=== PATIENT | male | born 1975 | race Caucasian/White ===

== ENCOUNTER 2024-02-25 22:33 | Emergency (ER) | payer SELFPAY ==
[~2024-02-25] VITALS: Ht 172.7 cm; Wt 70.0 kg
[2024-02-25 22:54] VITALS: TEMP 98.4; O2SAT 99
[2024-02-26] MEDS: CLONIDINE 0.1MG TABLET PO ONE (02:24)
[2024-02-26] MEDS: ACETAMINOPHEN 325MG TABLET PO ONE (02:25)
[2024-02-26 04:16] VITALS: BP 139/89; PULSE 89; RESP 16
== END 2024-02-26 04:17 | disposition home or self-care (01) ==
LOC: ER 22:33
DX: I10 Essential (primary) hypertension (principal); R51.9 Headache, unspecified
CPT/HCPCS: 99283

== ENCOUNTER 2024-07-26 12:34 | Emergency (ER) | payer MEDICAID ==
[~2024-07-26] VITALS: Ht 167.6 cm; Wt 68.0 kg
[2024-07-26 12:41] VITALS: O2SAT 95
[2024-07-26 12:52] VITALS: BP 13/89; PULSE 98; RESP 14; TEMP 98.4; O2SAT 82
== END 2024-07-26 21:19 | disposition left against medical advice (07) ==
LOC: ER 12:34
DX: R68.89 Other general symptoms and signs (principal); Z53.21 Procedure and treatment not carried out due to patient leaving prior to being seen by health care provider